=== PATIENT | male | born 1970 | race African-American/Black ===

== ENCOUNTER 2016-07-05 19:09 | Emergency (ER) ==
--- NOTE | 2016-07-05 19:29 | PROVIDER DOCUMENTATION ---
HPI-EENT General <Abner Castellanos - Last Filed: 07/05/16 19:46> - General Source: patient - History of Present Illness-EENT General EENT Location: reports: dental Quality of Pain: reports: aching Onset/Duration: reports: 3 days ago Timing: reports: still present Prearrival Treatment: Initiated no prearrival treatment Associated Symptoms: reports: tooth pain Locality of Occurance: Home Similar Symptoms Previously?: No Recently seen or treated by another doctor?: No - Throat/Dental Throat/Dental Problem Symptoms: reports: toothache <Tish Garcia - Last Filed: 07/05/16 20:00> - General Chief Complaint: Toothache Stated Complaint: DYER, LT FACIAL SIDE PAIN Time Seen by Provider: 07/05/16 19:22 Allergies/Adverse Reactions: Patient Allergies Allergy/AdvReac Type Severity Reaction Status Date / Time No Known Allergies Allergy Verified 12/26/14 18:21 Home Medications: Home Medication List Medication Instructions Recorded Confirmed Last Taken Type Omeprazole [Prilosec] 20 mg PO DAILY@0700 #0 capsule 11/27/13 12/26/14 12/25/14 Rx Ibuprofen 400 mg PO 4XDAY PRN PRN 12/26/14 12/26/14 12/25/14 History Meloxicam [Mobic] 15 mg PO DAILY #30 tablet 12/26/14 Unknown Rx Tramadol HCl [Ultram] 50 mg PO Q6-8H PRN PRN #20 tablet 12/26/14 Unknown Rx Amoxicillin 875 mg PO Q8HR #30 tablet 07/05/16 Unknown Rx Hydrocodone/Acetaminophen [[place] 1 each PO TID PRN PRN #15 tablet 07/05/16 Unknown Rx 7.5-325 Tablet] - History of Present Illness-EENT General Nature of Presenting Problem: 45 year old M presents to the ED with a cc of dental pain and a head ache x3 days. Pt states that dental pain began first. PT states that he has been drinking tonight. (Tish Garcia) Review of Systems - Adult - REVIEW OF SYSTEMS - ADULT Constitutional: denies: chills, fever Eyes: reports: no symptoms reported Ears, Nose, Mouth & Throat: reports: mouth/dental pain. denies: mouth swelling Cardiovascular: reports: no symptoms reported Respiratory: denies: cough, shortness of breath Gastrointestinal: denies: diarrhea, vomiting Genitourinary: reports: no symptoms reported Musculoskeletal: reports: no symptoms reported Integumentary: reports: no symptoms reported Neurological: reports: headache/migraines. denies: dizziness/vertigo Psychiatric: reports: no symptoms reported Endocrine: reports: no symptoms reported Hematologic/Lymphatic: reports: no symptoms reported Allergic/Immunologic: reports: no symptoms reported All Other Systems: Reviewed and Negative <Tish Garcia - Last Filed: 07/05/16 20:00> Past History - Adult - PAST MEDICAL HISTORY-ADULT Review of Records: reports: Nursing Assessment Review, Medications Reviewed Major Childhood Illnesses: reports: denies history Cardiovascular: reports: denies history Respiratory: reports: denies history Gastrointestinal: reports: denies history Obstetrical/Gynecological: reports: denies history Genitourinary: reports: denies history Musculoskeletal: reports: denies history Neurological: reports: denies history Psychiatric: reports: denies history Endocrine/Immune: reports: denies history Other Conditions: reports: denies history - PRIOR SURGERIES/PROCEDURES Surgical/Procedure History: reports: cholecystectomy, orthopedic (extremity) - PRIOR HOSPITALIZATIONS Prior Hospitalizations: reports: for other non-related - IMMUNIZATION STATUS Childhood Immunizations: See Nurse Assessment Flu Vaccine: See Nurse Assessment - FAMILY HISTORY Family History: reviewed, not pertinent - SOCIAL HISTORY Smoking: cigarettes, less than 1 pack/day Provider spent 3-5 mins advising pt. on dangers of tobacco.: Discussed manners to quit use, and f/u contacts for add'l counseling. Substance Use: none/never Alcohol Use Frequency: never <Tish Garcia - Last Filed: 07/05/16 20:00> Physical Exam- EENT - Physical Exam EENT Initial Vital Signs Reviewed: Yes General Appearance: appears well, alert, no apparent distress, other (smell of alcohol of breath) Throat Exam: dental tenderness (left upper first molar fractured with gum swelling and pus drainage), other (left upper maxillary tenderness) Respiratory: chest non-tender, lungs clear, normal breath sounds Cardiovascular: normal peripheral pulses, regular rate, rhythm, no edema Integumentary: normal color, normal turgor, warm/dry <Tish Garcia - Last Filed: 07/05/16 20:00> Progress <Abner Castellanos - Last Filed: 07/05/16 19:46> <Tish Garcia - Last Filed: 07/05/16 20:00> - PLAN OF CARE/RESULTS Progress/Plan/Lab Results: plan of care: medications Orders Category Date Time Status Clindamycin Med 07/05/16 19:47 Discontinued 600 mg IM NOW ONE Hydrocodone/APAP 7.5 mg/325 mg [[place]-7.5] Med 07/05/16 19:47 Discontinued 1 each PO NOW ONE Vital Signs - 24 hr 07/05/16 19:18 Temperature 98.0 F Pulse Rate 108 H Respiratory 16 Rate Blood Pressure 146/90 O2 Sat by Pulse 100 Oximetry Pt given results and will be d/c home w/ rx to follow up with PCP. Pt verbally understood instructions. PT remained clinically stable throughout the course of the ED stay and will return if symptoms worsen. (Tish Garcia) Departure - Departure Time of Disposition Order: 19:46 Certified Medical Emergency: Emergent <Abner Castellanos - Last Filed: 07/05/16 19:46> - Departure Certified Medical Emergency: Emergent <Tish Garcia - Last Filed: 07/05/16 20:00> - Departure DIAGNOSIS: Periodontal abscess Tooth fracture Qualifiers: Encounter type: initial encounter Fracture type: open Qualified Code(s): S02.5XXB - Fracture of tooth (traumatic), initial encounter for open fracture Disposition: HOME 01 Condition: Good Additional Instructions: Follow up with dentist. Take medications as prescribed. ED Follow Up Instructions: You have been treated by a care provider in the Emergency Department. These instructions are being provided to you so you can have an understanding of how to care for yourself upon discharge. Upon discharge from the Emergency Department, you are responsible for making arrangements for follow-up care by a physician of your choice. Take all prescribed medications as directed. Return to the Emergency Department immediately for any new or worsening symptoms. You may call the Physician Referral phone number at [phone] to obtain a list of Physicians who are taking new patients. Prescriptions: Amoxicillin 875 mg PO Q8HR #30 tablet Hydrocodone/Acetaminophen [[place] 7.5-325 Tablet] 1 each PO TID PRN PRN #15 tablet PRN Reason: Pain Referrals: None,PCP [Primary Care Provider] - Instructions: Tooth Injuries, [id number], Abscessed Tooth, [id number] Attestation - Scribe Verification/Attestation Scribe:: Tish Garcia Acting as Scribe for:: Abner Castellanos Scribe documention review:: This chart was documented by a scribe and accurately reflects the service the provider performed and the decisions made by the provider. <Tish Garcia - Last Filed: 07/05/16 20:00> Physician Attestation - Physician Attestation I, the provider, attest to the following statement:: Abner Castellanos Physician documentation Attestation:: This documentation recorded by the scribe accurately reflects the service I personally performed and the decisions made by me. <Tish Garcia - Last Filed: 07/05/16 20:00>
[2016-07-05] MEDS ORDERED: NORCO-7.5 PO ONE (19:47)
[2016-07-05] MEDS ORDERED: CLINDAMYCIN IM ONE (19:47)
[2016-07-05 20:11] VITALS: BP 124/88
== END 2016-07-05 20:38 | disposition home or self-care (01) ==
LOC: ED 19:09
DX: S02.5XXA Fracture of tooth (traumatic), initial encounter for closed fracture (principal); K05.219 Aggressive periodontitis, localized, unspecified severity; K08.89 Other specified disorders of teeth and supporting structures; R51 Headache; R22.0 Localized swelling, mass and lump, head; F17.210 Nicotine dependence, cigarettes, uncomplicated; Z71.6 Tobacco abuse counseling
CPT/HCPCS: S0077

== ENCOUNTER 2016-10-05 15:36 | Observation (INO) ==
--- NOTE | 2016-10-05 17:18 | Diag Imaging Result Doc PS360 ---
EXAM: HEAD W/O CONTRAST HISTORY: DYER TECHNIQUE: COMPARISON: None. FINDINGS: No parenchymal hemorrhage. No epidural or subdural hematoma. No subarachnoid hemorrhage. No mass identified on this noncontrasted exam. No hydrocephalus. No sinus opacification. IMPRESSION: No hemorrhage. Negative brain CT without contrast. Electronically signed by Ricardo John 10/05/2016 5:14 PM
[2016-10-05] MEDS ORDERED: NS 1,000 ML IV ONE (17:42)
--- NOTE | 2016-10-05 17:43 | PROVIDER DOCUMENTATION ---
This chart was entered by Aure Drummond Scribe, acting as scribe for Sherly Clayton MD. HPI-Headache <Mp El - Last Filed: 10/05/16 20:56> - General Source: patient, family () - History of Present Illness-Headache Headache Location: reports: occipital Quality of Pain: reports: aching Severity: reports: mild Onset/Duration: reports: other (months) Timing: reports: still present Headache Context: reports: nothing Headache History: reports: chronic headaches (x months now) Any recent trauma/injury?: reports: none (denies) Headache severity at the maximum: mild Preceding Symptoms: denies: scotoma, aura(s) Headache Exacerbated by:: reports: light Modifying Factors: improves with: nothing Associated Symptoms: reports: headache, other (blurry vision). denies: short of breath, fainting, dizziness, fatigue, fever/chills, numbness in legs/feet, paresthesia, diaphoretic, ringing in ears, slurred speech, tingling in legs/feet , vomiting, vision changes Similar Symptoms Previously?: Yes Recently seen or treated by another doctor?: Yes <Sherly Clayton - Last Filed: 10/06/16 10:57> - General Chief Complaint: Headache Stated Complaint: Headache Time Seen by Provider: 10/05/16 17:20 Allergies/Adverse Reactions: Patient Allergies Allergy/AdvReac Type Severity Reaction Status Date / Time No Known Allergies Allergy Verified 10/05/16 21:06 Home Medications: Home Medication List Medication Instructions Recorded Confirmed Last Taken Type NK [No Home Medications] 10/06/16 10/06/16 Unknown History - History of Present Illness-Headache Nature of Presenting Problem: 46 y/o M presents to ED cc of headache and blurry vision. Pt states this has all been getting worse x months now. Pt has seen an eye doctor for this blurry vision and states he needed to see a specialist due to the sudden lost. Pt states pt fell recently. Pt has been seeing ED for pain control. Denies fever/ CVA/RI. Pt has pain all over the top of his head. Denies any CP/SOB. Pt is alert and oriented. (Aure Drummond) 46 y/o M presents to ED cc of headache and blurry vision. Pt states this has all been getting worse x months now. Pt has seen an eye doctor for this blurry vision and states he needed to see a specialist due to the sudden lost. Pt states pt fell recently. Pt has been seeing ED for pain control. Denies fever/ CVA/RI. Pt has pain all over the top of his head. Denies any CP/SOB. Pt is alert and oriented. (Sherly Clayton) Review of Systems - Adult - REVIEW OF SYSTEMS - ADULT Constitutional: denies: chills, fever Eyes: reports: decreased vision, blurred vision. denies: discharge, dry eyes, double vision, redness Ears, Nose, Mouth & Throat: denies: ear discharge, ear pain, nose pain, loose teeth Cardiovascular: denies: chest pain, irregular heart rate, orthopnea, palpitations Respiratory: denies: cough, pleurisy, shortness of breath, wheezing Gastrointestinal: denies: abdominal pain, diarrhea, frequent heartburn, nausea, rectal bleeding, vomiting Genitourinary: denies: dysuria, discharge, hematuria, hesitency Musculoskeletal: denies: bone pain, back pain, joint swelling, muscle aches Neurological: reports: headache/migraines. denies: numbness, slurred speech, tremors <Sherly Clayton - Last Filed: 10/06/16 10:57> Past History - Adult - PAST MEDICAL HISTORY-ADULT Review of Records: reports: Old Records Reviewed, Nursing Assessment Review - PRIOR SURGERIES/PROCEDURES Surgical/Procedure History: reports: cholecystectomy, orthopedic (extremity) - PRIOR HOSPITALIZATIONS Prior Hospitalizations: reports: for other non-related - IMMUNIZATION STATUS Childhood Immunizations: See Nurse Assessment Flu Vaccine: See Nurse Assessment - FAMILY HISTORY Family History: reviewed, not pertinent - SOCIAL HISTORY Smoking: quit greater than 1 year Substance Use: denies <Sherly Clayton - Last Filed: 10/06/16 10:57> Physical Exam- Neurological - Physical Exam-Neuro General Appearance: appears well, alert, no apparent distress HENMT: moist mucous membranes, normal ENT inspection Head Injury: no evidence of injury Neck: non-tender, full range of motion, supple Respiratory: chest non-tender, lungs clear, normal breath sounds Cardiovascular: normal peripheral pulses, regular rate, rhythm, no edema Abdominal Exam: normal bowel sounds, non tender, soft Lymphatic: no adenopathy Extremity: normal range of motion, non-tender, normal gait brand recorder Exam: normal hearing, normal speech. negative: abnormal eye position, abnormal gag reflex, abnormal pupil position, abnormal speech, facial asymmetry , facial droop, facial paresthesias, facial weakness, hearing deficit (R), hearing deficit (L), tongue deviation to R, tongue deviation to L Coordination/Gait: normal finger to nose, normal gait. negative: ABN nose to finger (R), ABN nose to finger (L) Motor/Sensory: no motor deficit, no sensory deficit, no pronator drift, negative Babinski's sign. negative: positive Babinski's sign, pronator drift (R ), pronator drift (L), weak motor strength RUE, weak motor strength LUE, weak motor strength RLE, weak motor strength LLE Neurologic: brand recorder II-XII nml as tested, grossly normal, no motor/sensory deficits . negative: abnormal brand recorder II-XII, abnormal gait, aphasia Integumentary: normal color, normal turgor, warm/dry Psych/Mental Status: oriented x 3 - Glascow Coma Scale Best Eye Response: (4) open spontaneously Best Verbal Response: (5) oriented Best Motor Response: (6) obeys commands Total Glascow Score: 15 <Sherly Clayton X - Last Filed: 10/06/16 10:57> Progress - PLAN OF CARE/RESULTS Result Diagrams: 10/05/16 17:53 10/05/16 17:53 <Mp El - Last Filed: 10/05/16 20:56> - PLAN OF CARE/RESULTS Result Diagrams: 10/06/16 05:56 10/06/16 05:56 - CT/MRI 1 CT Study: Head Impression: Normal (No hemorrhage. Negative brain CT without contrast. - Dr. John(radiologist)) CT Results: see impression - CHANGE OF SHIFT REPORT (ED Provider) Report Given and Care Transferred to:: Time of Transfer: 18:00 Items Pending: Labs, Other (final result of pt) <Sherly Clayton - Last Filed: 10/06/16 10:57> - PLAN OF CARE/RESULTS Progress/Plan/Lab Results: Laboratory Results - last 24 hr 10/05/16 10/05/16 10/05/16 17:53 17:53 17:53 WBC 2.78 L RBC 4.11 L Hgb 14.4 Hct 40.0 L MCV 97.3 MCH 35.0 H MCHC 36.0 RDW Std Deviation 12.1 Plt Count 175 MPV 9.7 Immature Gran % (Auto) 0.0 Neut % (Auto) 23.8 L Lymph % (Auto) 60.4 H Cloud % (Auto) 14.0 H Eos % (Auto) 0.4 Baso % (Auto) 1.4 H Immature Gran # (Auto) 0.00 Neut # (Auto) 0.66 L Lymph # (Auto) 1.68 Cloud # (Auto) 0.39 Eos # (Auto) 0.01 Baso # (Auto) 0.04 ESR 5 Sodium 138 Potassium 3.1 L Chloride 96 L Carbon Dioxide 29 Anion Gap 13 BUN 3 L Creatinine 0.8 Estimated GFR/1.73 m2 > 60 BUN/Creatinine Ratio 4 Glucose 83 Calculated Osmolality 271 Calcium 8.8 Total Bilirubin 0.47 AST 57 H ALT 26 Alkaline Phosphatase 68 Troponin T Total Protein 8.0 Albumin 4.2 Globulin 3.8 Albumin/Globulin Ratio 1.1 Plasma Lactate 2.4 H Urine Source Urine Color Urine Turbidity Urine pH Ur Specific [place] Urine Protein Ur Glucose (Stick) Ur Ketones (Stick) Urine Blood Urine Nitrite Urine Bilirubin Urobilinogen Dipstick Urine Leukocytes Urine WBC (Auto) Urine RBC (Auto) U Epithel Cells (Auto) Urine Bacteria (Auto) Urine Opiates Screen Ur Oxycodone Screen Ur Methadone, Qual Ur Barbiturates Screen Ur Phencyclidine Scrn Ur Amphetamines Screen U Benzodiazepines Scrn Urine Cocaine Screen U Cannabinoids Screen 10/05/16 10/05/16 10/05/16 17:53 18:40 18:40 WBC RBC Hgb Hct MCV MCH MCHC RDW Std Deviation Plt Count MPV Immature Gran % (Auto) Neut % (Auto) Lymph % (Auto) Cloud % (Auto) Eos % (Auto) Baso % (Auto) Immature Gran # (Auto) Neut # (Auto) Lymph # (Auto) Cloud # (Auto) Eos # (Auto) Baso # (Auto) ESR Sodium Potassium Chloride Carbon Dioxide Anion Gap BUN Creatinine Estimated GFR/1.73 m2 BUN/Creatinine Ratio Glucose Calculated Osmolality Calcium Total Bilirubin AST ALT Alkaline Phosphatase Troponin T < 0.010 Total Protein Albumin Globulin Albumin/Globulin Ratio Plasma Lactate Urine Source CLEAN CATCH Urine Color YELLOW Urine Turbidity CLEAR Urine pH 6.0 Ur Specific [place] 1.006 Urine Protein 70 A Ur Glucose (Stick) NEGATIVE Ur Ketones (Stick) NEGATIVE Urine Blood TRACE A Urine Nitrite NEGATIVE Urine Bilirubin NEGATIVE Urobilinogen Dipstick NORMAL Urine Leukocytes NEGATIVE Urine WBC (Auto) <10 Urine RBC (Auto) <10 U Epithel Cells (Auto) <10 Urine Bacteria (Auto) NEGATIVE Urine Opiates Screen NONE DETECTED Ur Oxycodone Screen NONE DETECTED Ur Methadone, Qual NONE DETECTED Ur Barbiturates Screen NONE DETECTED Ur Phencyclidine Scrn NONE DETECTED Ur Amphetamines Screen NONE DETECTED U Benzodiazepines Scrn NONE DETECTED Urine Cocaine Screen NONE DETECTED U Cannabinoids Screen PRESUMPTIVE POSITIVE A Orders Category Date Time Status Admit - [facility] Routine AdmDCTranf 10/05/16 22:19 Ordered Activity - Up with Assistance ORDERED Care 10/05/16 22:19 Active Intake and Output-Strict ORDERED Care 10/05/16 22:19 Active Nursing- MD Consult Request ROUTINE Care 10/05/16 20:56 Inactive Visual Acuity DIRECTED Care 10/05/16 17:12 Completed Vital Signs Order Q6-HR ASSESS Care 10/05/16 22:19 Active Z-Document. for Tele Applied ORDERED Care 10/05/16 22:19 Completed Physician/Provider Consults Routine Cons 10/05/16 20:56 Ordered Regular Diet Diet 10/05/16 21:23 Active HEAD W/O CONTRAST [CT] Stat Exams 10/05/16 16:33 Completed MRA NECK W/CONT [MRI] Stat Exams 10/06/16 08:00 Completed MRI BRAIN W W/O CONTRAST [MRI] Stat Exams 10/06/16 08:00 Completed BASIC METABOLIC PANEL [CHEM] DAILY Lab 10/06/16 05:56 Completed BASIC METABOLIC PANEL [CHEM] DAILY Lab 10/07/16 06:00 Ordered BLOOD CULTURE [BLDCUL] Stat Lab 10/05/16 01:05 Results CBC WITH DIFF [HEME] DAILY Lab 10/06/16 05:56 Completed CBC WITH DIFF [HEME] DAILY Lab 10/07/16 06:00 Ordered CBC WITH DIFF [HEME] Stat Lab 10/05/16 17:53 Completed COMPREHENSIVE METABOLIC PANEL [CHEM] Stat Lab 10/05/16 17:53 Completed HIV AB SCREEN [HH] Stat Lab 10/05/16 17:53 Received LACTATE, PLASMA [CHEM] Stat Lab 10/05/16 17:53 Completed SED RATE [HEME] Stat Lab 10/05/16 17:53 Completed TROPONIN T Stat Lab 10/05/16 17:53 Completed UA NIMS W/REFLEX CULT [URINALYSIS] Stat Lab 10/05/16 18:40 Completed UDS [URINE DRUG SCREEN] Stat Lab 10/05/16 18:40 Completed URINE CULTURE [RM] Routine Lab 10/05/16 22:50 Results 0.9% Sodium Chloride Inj [Ns] 1,000 ml Med 10/05/16 22:19 Active IV 150 mls/hr 0.9% Sodium Chloride Inj [Ns] 1,000 ml Med 10/05/16 17:42 Discontinued IV 999 mls/hr Acetaminophen [Tylenol] Med 10/05/16 22:19 Active 650 mg PO Q6H PRN PRN Enoxaparin [Lovenox] Med 10/05/16 22:19 Active 40 mg SUBQ Q24H Hydrocodone/APAP 7.5 mg/325 mg [[place]-7.5] Med 10/05/16 20:56 Discontinued 1 each PO NOW ONE Omeprazole [Prilosec] Med 10/06/16 07:00 Active 40 mg PO DAILY@0700 Ondansetron [Zofran] Med 10/05/16 22:19 Active 4 mg IV Q4H PRN PRN Potassium Chloride E.r. [Klor-Con] Med 10/05/16 20:58 Discontinued 60 meq PO NOW ONE Telemetry [OM.EQ] Routine Oth 10/05/16 22:19 Active Transfer/Admit Order [TRANSFER] Routine Transfer 10/05/16 21:22 Completed PLAN: HEAD CT5, LABS , MONITOR PT, URINE (Aure Drummond) PLAN: HEAD CT5, LABS , MONITOR PT, URINE (Sherly Clayton) Departure - Departure Date of Disposition Decision: 10/05/16 Time of Disposition Decision: 20:57 Certified Medical Emergency: Emergent - Critical Care Note This patient required my direct & personal management of CC.: Yes <Mp El - Last Filed: 10/05/16 20:56> - Departure Date of Disposition Decision: 10/05/16 Time of Disposition Decision: 20:58 Certified Medical Emergency: Emergent - Critical Care Note This patient required my direct & personal management of CC.: No <Sherly Clayton - Last Filed: 10/06/16 10:57> - Departure DIAGNOSIS: Headache Qualifiers: Headache type: unspecified Headache chronicity pattern: acute headache Intractability: intractable Qualified Code(s): R51 - Headache Neutropenia Qualifiers: Neutropenia type: other Qualified Code(s): D70.8 - Other neutropenia Disposition: ADMITTED INPATIENT 09 Condition: Fair This chart was documented by the indicated scribe, (Aure Drummond Scribe) and accurately reflects the services I performed and decisions made by me, Sherly Clayton MD, as attested by the provider's signature.
[2016-10-05 18:12] LABS: MANUAL DIFF NEEDED? NO
[2016-10-05 18:40] LABS: AGAP 13; ALBUMIN 4.2 g/dL (3.5-5.0); ALKALINE PHOSPHATASE 68 U/L (32-122); BUN 3 mg/dL (8-22); CALCIUM 8.8 mg/dL (8.8-10.2); CHLORIDE 96 mmol/L (98-107); COSMO 271; GOT 57 U/L (10-34); GPT 26 U/L (10-44); POTASSIUM 3.1 mmol/L (3.5-5.1); SODIUM 138 mmol/L (136-145); TCO2 29 mmol/L (25-35); TOTAL BILIRUBIN 0.47 mg/dL (0.20-1.00)
[2016-10-05 18:53] LABS: BASO% 1.4 % (0.0-0.8); EOS# 0.01 X1000 (0.0-0.7); EOS% 0.4 % (0.0-10.0); HEMOGLOBIN 14.4 g/dL (14.0-18.0); LYMPH# 1.68 X1000 (1.2-3.4); LYMPH% 60.4 % (20.5-51.1); MCV 97.3 FL (81-99); MONO# 0.39 X1000 (0.11-0.59); MPV 9.7 FL (7.4-10.4); NEUT% 23.8 % (42.2-75.2); PLT 175 X1000 (130-400); RBC 4.11 XMIL (4.7-6.1)
[2016-10-05 19:21] LABS: SED RATE 5 mm/hr (0-15)
[2016-10-05 19:41] LABS: URINE CULTURE NEEDED? NO; URINE MICRO REVIEW NEEDED? NO; URINE SOURCE CLEAN CATCH
[2016-10-05 19:47] LABS: BILIRUBIN URINE NEGATIVE (NEGATIVE); BLOOD URINE TRACE (NEGATIVE); COLOR YELLOW; GLUCOSE URINE NEGATIVE (NEGATIVE); LEUKOCYTES URINE NEGATIVE (NEGATIVE); NITRITE URINE NEGATIVE (NEGATIVE); PROTEIN URINE 70 mg/dL (NEGATIVE); SP GRAVITY URINE 1.006; TURBIDITY URINE CLEAR (CLEAR); UROBILINOGEN URINE NORMAL (NORMAL)
[2016-10-05 19:48] LABS: UR EPITHELIAL CELLS <10 /HPF (<10); URINE BACTERIA NEGATIVE /HPF; URINE RBC <10 /HPF (<10); URINE WBC <10 /HPF (<10)
[2016-10-05 19:59] LABS: UR AMPHETAMINES QUAL NONE DETECTED (NONE DETECT); UR BARBITUATES QUAL NONE DETECTED (NONE DETECT); UR BENZODIAZEPIN QUAL NONE DETECTED (NONE DETECT); UR CANNABINOIDS QUAL PRESUMPTIVE POSITIVE (NONE DETECT); UR COCAINE QUAL NONE DETECTED (NONE DETECT); UR METHADONE QUAL NONE DETECTED (NONE DETECT); UR OPIATES QUAL NONE DETECTED (NONE DETECT); UR OXYCODONE QUAL NONE DETECTED (NONE DETECT); UR PCP QUAL NONE DETECTED (NONE DETECT)
[2016-10-05] MEDS ORDERED: NORCO-7.5 PO ONE (20:56)
[2016-10-05] MEDS ORDERED: KLOR-CON PO ONE (20:58)
[2016-10-05] MEDS ORDERED: LOVENOX SUBQ SCH (22:19)
[2016-10-05] MEDS: TYLENOL PO PRN (22:26)
--- NOTE | 2016-10-05 22:26 | HISTORY AND PHYSICAL ---
PRIMARY CARE PHYSICIAN: None. CHIEF COMPLAINT: Severe headache and loss of right vision. HISTORY OF PRESENT ILLNESS: This is a 46-year-old, male with unremarkable past medical history who presented to the emergency department complaining of severe headache and also loss of vision of the right eye. Patient reports that he usually has headaches , but he has not been seen by any doctor. Regarding loss of vision, he was complaining of blurry vision and specifically decreasing visual acuity in the right eye since last May, but because of lack of insurance, went to see an overnight caregiver and he was told that there was nothing wrong with the vision. He needs to see the DrNithin because the brain could be the reason why he is having this problem. The patient reports that he usually has headaches and he takes Tylenol for this pain. He reports that sometimes lights bothers him as well as deep sounds. He denies any fever or chills. reports that he was losing some weight, but not able to report how many he has lost. Laboratory data here in the ER reveals leukopenia with absolute neutrophil count of 660. So patient is going to admitted for further evaluation and treatment. PAST MEDICAL HISTORY: Unremarkable. PAST SURGICAL HISTORY: 1. Cholecystectomy. 2. Right hip surgery with placement of plate with screws a few years ago. 3. Left elbow plastic implant. ALLERGIES: Patient is not allergic to any medication. SOCIAL HISTORY: Patient drinks alcohol socially. He smokes between 2-3 cigarettes per day or twice daily and denies using any illicit drugs. Patient lives with . He does have a job and he requested for disability at least 6 times. REVIEW OF SYSTEMS: 11 systems were reviewed and all symptoms are related to history and physical. DISCHARGE PHYSICAL EXAMINATION: Vitals: Temperature 98 degrees, heart rate 80 , respiratory 14, blood pressure 108/74. O2 saturation 100% on room air. General: This is a 46-year-old [place] male lying in bed in no acute distress. HEENT: Head is normocephalic , atraumatic. Anicteric sclerae and pale conjunctivae. Mucous membranes moist. Pupils equal , round, reactive to light and accommodation. There is questionable left-sided nystagmus. Neck : Supple. No JVD noted. No carotid bruits. No lymphadenopathy. No thyromegaly. Cardiovascular : S1, S2 heard. No murmurs, gallops, or rubs. Regular rate and rhythm. Respiratory: Clear bilaterally to auscultation. No work of breathing or using accessory muscles. Abdomen: Soft , nontender to palpation. Bowel sounds present. No organomegaly. Extremities: No clubbing, cyanosis, or edema. Peripheral pulses present in both legs. Neurological: Patient alert and oriented x3. Able to move 4 extremities. Cranial nerves 2-12 grossly normal. Motor strength 5/5 on 4 extremities. Sensitivity is intact. Babinski is negative. Vision: There is some compromise of peripheral vision in both eyes, but more noticeable in the right side. The rest of cranial 1st normal. LABORATORY DATA: White cell count 2.78, hemoglobin 14.4, hematocrit 40, platelets 175,000. Sodium 138, potassium 3.1, chloride 96, bicarb 29, BUN 3, creatinine 0.8, and UDS positive for marijuana. Urinalysis is clean. ASSESSMENT: 1. History of worsening headaches. 2. Blurry vision with large right-sided loss of vision. PLAN: 1. The patient is going to be admitted to the hospital because of this loss of vision and worsening headaches. 1st computed tomography of the head without contrast showed no bleeding, so just to complete the workup, we are going to do a magnetic resonance imaging of the brain with and without contrast as well as magnetic resonance angiography of the neck, head and neck to see if there is an aneurysm that could be present there. Also, because of this leukopenia, we are going to do a human immunodeficiency virus, we are going to do erythrocyte sedimentation rate. For this problem with the patient, we prefer to have Neurology on board, so we are going to consult Dr. Jose. 2. Further recommendations to follow according to the clinical situation of the patient. cc: Bharat Toribio MD [facility]
[2016-10-05] MEDS ORDERED: PNEUMOVAX 23 IM ONE (23:26)
[2016-10-06] MEDS ORDERED: NORCO-7.5 PO ONE (01:24)
[2016-10-06] MEDS: TYLENOL PO PRN ×2 (04:38→10:59)
[2016-10-06] MEDS: NS 1,000 ML IV SCH ×3 (04:38→11:02)
[2016-10-06 06:11] LABS: MANUAL DIFF NEEDED? NO
[2016-10-06 06:15] LABS: BASO% 2.8 % (0.0-0.8); EOS# 0.03 X1000 (0.0-0.7); EOS% 1.2 % (0.0-10.0); HEMATOCRIT 37.6 % (42.0-52.0); HEMOGLOBIN 13.5 g/dL (14.0-18.0); LYMPH# 1.37 X1000 (1.2-3.4); LYMPH% 55.2 % (20.5-51.1); MCH 36.2 PG (27-31); MCHC 35.9 g/dL (33-37); MCV 100.8 FL (81-99); MONO# 0.44 X1000 (0.11-0.59); MONO% 17.7 % (1.7-9.3); NEUT% 23.1 % (42.2-75.2); PLT 137 X1000 (130-400); RBC 3.73 XMIL (4.7-6.1)
[2016-10-06] MEDS: ZOFRAN IV PRN ×2 (06:57→10:59)
--- NOTE | 2016-10-06 06:57 | EKG Report ---
Test Performed on : 10/06/2016 06:33:50 AM Test Reason : CP Blood Pressure : / mmHG Vent. Rate : 082 BPM Atrial Rate : 082 BPM P-R Int : 154 ms QRS Dur : 086 ms QT Int : 394 ms P-R-T Axes : 069 059 060 degrees QTc Int : 460 ms Normal sinus rhythm. with sinus arrhythmia. Normal ECG When compared with ECG of 25-NOV-2013 14:18, No significant change was found Confirmed by Darwin RICE, Steve Thomson ([id number]) on 10/07/2016 9:13:43 AM
[2016-10-06] MEDS ORDERED: PRILOSEC PO SCH (07:00)
[2016-10-06 07:01] LABS: AGAP 19; BUN 3 mg/dL (8-22); CALCIUM 7.9 mg/dL (8.8-10.2); CHLORIDE 102 mmol/L (98-107); COSMO 275; SODIUM 140 mmol/L (136-145); TCO2 19 mmol/L (25-35)
[2016-10-06 08:21] VITALS: BP 118/84
[2016-10-06 08:24] LABS: CK INDEX 0.8 (0.0-2.5); CK-MB 1.83 ng/mL (0.0-5.0)
--- NOTE | 2016-10-06 10:28 | Diag Imaging Result Doc PS360 ---
EXAM: MRI BRAIN W W/O CONTRAST - 10/06/2016 HISTORY: stroke TECHNIQUE: Images are obtained prior to and following Omniscan administration. COMPARISON: CT head 10/05/2016 FINDINGS: There is no evidence of intracranial hemorrhage, mass effect, midline shift, or hydrocephalus. There are possibly mild atrophic changes and minimal chronic microvascular ischemic changes. The diffusion weighted images show no areas of restricted diffusion (no evidence of acute infarct). There is no abnormal enhancement identified. IMPRESSION: No visible acute intracranial abnormality. No evidence of infarct. Electronically signed by Ihsan Jaime 10/06/2016 10:25 AM
--- NOTE | 2016-10-06 10:33 | Diag Imaging Result Doc PS360 ---
EXAM: MRA BRAIN W/O CONTRAST - 10/06/2016 HISTORY: lost of right vision TECHNIQUE: [id number] MR angiogram brain with reconstructed rotating MIP images COMPARISON: None. FINDINGS: The left posterior cerebral artery appears to receive most of the supply via the basilar artery. The right posterior cerebral artery appears to receive most of the supply from the right internal carotid artery via the right posterior communicating artery. The above is compatible with range of normal variation. There is no major intracranial arterial occlusion identified. There is no substantial stenosis of major intracranial arteries identified. There is no aneurysm identified. IMPRESSION: No discrete abnormality. Electronically signed by Ihsan Jaime 10/06/2016 10:30 AM
--- NOTE | 2016-10-06 10:35 | Diag Imaging Result Doc PS360 ---
EXAM: MRA NECK W/CONT - 10/06/2016 HISTORY: lost of right vision TECHNIQUE: Exam performed following Omniscan administration. Rotating MIP images of the carotid circulation in the neck are obtained. COMPARISON: None. FINDINGS: There is no carotid stenosis identified on the right or the left (0% stenosis). The bilateral vertebral arteries are noted to be patent. IMPRESSION: No evidence of carotid stenosis. Electronically signed by Ihsan Jaime 10/06/2016 10:33 AM
--- NOTE | 2016-10-06 11:20 | CONSULTATION ---
DATE OF CONSULTATION: 10/06/2016 SUBJECTIVE: Mr. lE is 46 years old and he has longstanding headache. History from the patient is that he began having headaches in his 20s or 30s. Headaches were as often as 2 or 3 times per week in recent years. About 4-6 months ago, headaches became daily, usually constant throughout the day each day. This is mostly at the vertex, bilateral pounding, throbbing, and pressure with nausea, infrequent vomiting, prominent photophobia and phonophobia. He has had some blurred vision which he believes is mostly central and global, without definite focal features. He has had a few very brief episodes of seeming unable to see at all, lasting just a few seconds or so at that time. His admission note reported poor visual acuity in the right eye since May. He has had Optometry and Ophthalmology examination in recent weeks and he reports no findings. He had a head injury as a teenager. He has not had more recent head injury. He has never had diagnosed stroke, seizure, or other neurologic event. There is family history of headache in a brother. His parents at young age and he does not know of any other family history of headache. Workup here includes noncontrast CT of the head, reported unremarkable. On my view, there is some cerebellar more than cerebral atrophy. Brain MRI scan today is unremarkable. Brain and cervical MRA are both unremarkable. Laboratory showed sedimentation rate 5, low WBC count, anemia. He had AST 57, otherwise normal liver enzymes this admission. Review of the chart in the computer shows previous significant liver elevations in the past, admission in 2013 with reported ethanol abuse, pancreatitis, elevated transaminases, and thrombocytopenia. This admission, he has been afebrile. Blood pressures are not remarkable. There was 1 recent emergency room visit with blood pressure recorded 120/91. Other blood pressures have been normal or borderline/pre-hypertensive. He has had 4 emergency room visits in the last 3 months with chief complaint of headache. EXAMINATION: On exam now, Mr. El is awake, alert, attentive, oriented. He appears uncomfortable. Speech is not dysarthric. Language function is intact. Memory is good. Head is unremarkable. There is no meningismus. He has full visual mohr tested grossly by confrontational finger counting. Visual acuity seems impaired, but I did not test that more completely. Facial motility is symmetric. He has some equivocal findings on pinprick testing over the face, generally reporting better pinprick appreciation over the right face than the left. Gag is intact. Tongue is midline. He can hear. Shoulder shrug is equal. Strength is normal in the arms and legs. He did well on [id number] testing. He reports variable pinprick appreciation over the limbs, generally better pinprick appreciation over the left limbs than the right. Proprioception is good at the great toe MTP joint bilaterally. I did not test his gait. Reflexes are 1+ at the wrists and absent at the ankles. IMPRESSION: Persistent headache, chronic daily headache syndrome. I do not see evidence of increased intracranial pressure. Negative imaging is reassuring. He has had some blurred vision and recent ophthalmology evaluation. He has a past history of episodic headache , typical of migraine, with usual family history noted. I think we need to treat headache symptomatically. He reports hydrocodone helped temporarily with prescription he received on one of his recent emergency room visits. Otherwise, he believes he has not had any prescription medicines for headache. He takes daily doses of acetaminophen and/or ibuprofen and we discussed risk for medication overuse/analgesic rebound headache. I encouraged him to keep check on his blood pressure. I think best management would be to start medicine for migraine prophylaxis. He may have some trouble affording medicines. Topiramate, divalproex, amitriptyline would be good choices. I would probably not start divalproex because of concern for liver toxicity in this patient with history of liver enzyme elevations. Therefore, we choose between topiramate and amitriptyline. He might check to see which of these is going to be more affordable. Side effect profile is generally more favorable with topiramate. If he chooses topiramate, I would start 25 mg daily and plan to increase that weekly as tolerated. I will be glad to follow Mr. El as an outpatient for headache management. Thanks for asking me to see him today. cc: MD BHARGAV Cabrera III
--- NOTE | 2016-10-06 14:03 | PROGRESS NOTE ---
DATE: 10/06/2016 SUBJECTIVE: The patient is feeling a little better. Still having a headache and no fever. No chills. No nausea, vomiting, or diarrhea. Visual deficit has improved. Vital signs: Blood pressure 118/84, pulse of 90, respirations 20, temperature 98.2 degrees, sat 100% room air. General appearance: Thin, black male, in no acute distress. HEENT: Anicteric. Clear conjunctivae. Neck: Supple. No JVD. No bruit. Cardiovascular: S1, S2. Normal rate and rhythm. No murmur, rubs, or gallops. Pulmonary: Clear to auscultation bilaterally. GI: Soft, nontender, nondistended. Normoactive bowel sounds. Musculoskeletal: No clubbing, cyanosis, or edema. Neuro exam: Cranial nerves 2-12 are grossly intact. Eye exam: No nystagmus. No quadrant deficits. No sensory deficit on either side of his body. No motor weakness. ASSESSMENT/PLAN: [age] year old admitted to the hospital for chief complaint of having blurry vision and headache. Headache consistent with migraine. Neurology saw the patient, recommended to put the patient on either Elavil or Topamax. Topamax is too expensive for the patient to afford so put him on Elavil which has a generic form should be very affordable. I sent a prescription to [facility] and the patient should be able to pick it up today. Will plan to discharge the patient home. cc: Wilson Jose III, MD
--- NOTE | 2016-10-07 01:35 | DISCHARGE SUMMARY ---
ADMISSION DATE: 10/05/2016 DISCHARGE DATE: 10/06/2016 PERTINENT PROCEDURES: 1. Head CT, showed no hemorrhage. Negative brain CT without contrast. 2. Brain MRA showed no discrete abnormality. 3. Brain MRI showed no visible acute intracranial abnormality. No evidence of infarct. 4. Neck MRA showed no evidence of carotid stenosis. CONSULTATIONS: Wilson Jose III, MD DISCHARGE DIAGNOSES: 1. Headache, consistent with migraine, followed by Neurology, who recommended that the patient either be on Elavil or Topamax. Topamax was too expensive for the patient to afford, so he has been placed on Elavil. The prescription has been sent to [facility]. 2. Blurry vision with large right-sided and loss of vision. Again, followed by Neurology. All his imaging was negative. His visual deficit has improved. HOSPITAL COURSE: Mr. El is a 46-year-old male, unremarkable past medical history, who presented to the ED complaining of severe headache and loss of vision in the right. The patient reports that he usually has headaches but he has not been seen by any doctor regarding the loss of vision. He was complaining of very blurry vision, and specifically decreased visual acuity in the right eye since last May, but because of lack of insurance he went to see an eye doctor who told him there was nothing wrong with his vision. They might need to see a PCP for his brain, that could be the reason why he was having a problem. For his headaches, he normally takes Tylenol for the pain and that sometimes light bothers him, as well as deep sounds. Laboratory data in the ED revealed leukopenia. Absolute neutrophil count of 660. The patient underwent a normal head CT ,as well as a normal brain MRA, brain MRI, and neck MRA. He had a consult with Neurology, who saw the patient for his persistent headache and chronic daily headache syndrome. He feels that we need to treat his headaches symptomatically and maybe switch the patient to Elavil since the Topamax was too expensive. Clinically, the patient has improved, although he does still complain of a mild headache. His visual deficit has improved. Hemodynamically, the patient has been stable. He is appropriate for discharge home today. VITAL SIGNS: Temperature is 98.2 degrees, heart rate 90, respirations 20, blood pressure is 118/84, O2 is 100% on room air. DISCHARGE MEDICATIONS: As per Dr. Renner. 1. Tylenol 650 mg p.o. q.6 hours p.r.n. 2. Elavil 25 mg p.o. b.i.d. FOLLOWUP: The patient is being discharged home with his . He will need to obtain a primary care physician. List has been provided to him. Follow up in 7-10 days. He can follow up with Dr. Wilson Jose on a p.r.n. basis. DISCHARGE TIME: Was 30 minutes. Dictated by BRAXTON Vilchis for Lan Renner MD Addendum: I personally evaluated and examined the patient in conjunction to the INSTALLATION HELPER and agreed with her disposition MTDD
[2016-10-07 08:57] LABS: HIV ANTIBODY SCREEN SEE COMMENTS
== END 2016-10-06 15:01 | disposition home or self-care (01) ==
LOC: ED 15:36 → 4N 15:36 → SUATTDRO 22:00
PROVIDERS: ATTEND Internal Medicine